=== PATIENT | female | born 1960 | race Caucasian/White ===

== ENCOUNTER → 2018-06-13 | Day surgery (SDC) | payer BC ==
[~2018-06-13] MED LIST: ALLEGRA ALLERG180 MG PO; ASPIR 8181 MG PO; CENTRUM SILVER1 EAC3 PO; CINNAMON500 MG PO; CITRACAL + BON1 EACH PO; ESTRADIOL-NORE1 EACH PO; FENTANYL CITRATE/PF 100MCG/2 ML INJ ONE; HYDROCHLOROTHIA25 MG PO; HYOSCYAMINE SULFATE 0.5 MG/ML INJ ONE; LISINOPRIL-HCT1 EAC1 PO; LISINOPRIL10 MG PO; MIDAZOLAM HCL 2 MG/2 ML VIAL ONE; PROBIOTIC & AC1 EACH PO; PROPOFOL IV EMULSION 10 MG/ML 50 ML VIAL ONE; PROPRANOLOL HCL40 MG PO; RESVERATROL100 MG PO; VITAMIN D1000 UNIT PO; WAL-ITIN10 MG PO; [UNRECOGNIZED DRUG - OTHER]
--- OUTSIDE RECORDS SUMMARY | 2018-06-13 08:28 | XMS REPORT | Clinical Summary ---
Author Author [facility] Organization [facility] Address Unknown Phone Unavailable Care Team Providers Care Internet Sales Associate Name Role Phone Alvarado Shepherd DO PCP Allergies No Known Allergies Current Medications Prescription Sig. Disp. Refills Start End Date Status Date hydroCHLOROthiazide 03/10/20 Active (HYDRODIURIL) 25 MG 18 tablet propranolol LA (INDERAL 03/10/20 Active LA) 60 MG 24 hr capsule 18 lisinopril TK 1 T PO D 1 03/04/20 Active (PRINIVIL,ZESTRIL) 40 mg 18 tablet LOPREEZA 0.5-0.1 mg per TK 1 T PO QD 3 03/04/20 Active tablet 18 Active Problems Not on file Encounters Date Type Specialty Care Team Description 03/12/2018 Office Visit Sports Karthikeyan Conti MD Plantar fasciitis, bilateral (Primary Dx); Pain of left heel; Pain of right heel 03/12/2018 Ancillary Karthikeyan Escalante MD Foot pain, bilateral Orders after 06/12/2017 Family History Medical History Relation Name Comments Hypertension Father Diabetes Mother Hypertension Mother Relation Name Status Comments Father Mother Social History Tobacco Use Types Packs/Day Years Used Date Never Smoker Smokeless Tobacco: Never Used Alcohol Use Drinks/Week oz/Week Comments No Sex Assigned at Date Recorded Not on file Last Filed Vital Signs Vital Sign Reading Time Taken Blood Pressure - - Pulse - - Temperature - - Respiratory Rate - - Oxygen Saturation - - Inhaled Oxygen - - Concentration Weight 90.7 kg (200 lb) 03/12/2018 9:11 AM CDT Height 170.2 cm (5' 7") 03/12/2018 9:11 AM CDT Body Mass Index 31.32 03/12/2018 9:11 AM CDT Plan of Treatment Date Type Specialty Care Team Description 06/16/2018 Office Visit Sports Karthikeyan Conti MD [address] [facility] [address] [place] [address] [phone] Health Maintenance Due Date Last Done Comments CERVICAL CANCER SCREENING 1980 BREAST CANCER SCREENING 2009 COLON CANCER SCREENING 2009 SHINGRIX VACCINE (#1) 2009 INFLUENZA VACCINE 03/18/2018 Procedures Procedure Name Priority Date/Time Associated Diagnosis Comments XR FOOT 3 VW BILATERAL Routine 03/12/2018 Foot pain, bilateral Results for this 9:23 AM CDT procedure are in the results section. MI ARTHROCENTESIS Routine 03/12/2018 Plantar fasciitis, Results for this ASPIR&/INJ INTERM JT/BURS 9:00 AM CDT bilateral procedure are in the W/O Pain of left heel results section. after 06/12/2017 Results * XR Foot 3 Vw Bilateral (03/12/2018 9:23 AM) Narrative Performed At [facility] Right foot 3 views: Mild inferior calcaneal spur noted on lateral view Left foot 3 views: Mild inferior calcaneal spur noted on lateral view Performing Organization Address [facility] Phone Number [facility] [address] [place] [address] * Medium Joint Arthrocentesis (03/12/2018 9:00 AM) Narrative Performed At Karthikeyan Reyna MD 03/12/2018 10:24 AM Medium Joint Arthrocentesis Consent given by: patient Site marked: site marked Timeout: Immediately prior to procedure a time out was called to verify the correct patient, procedure, equipment, software support technician and site/side marked as required Supporting Documentation Indications: pain Procedure Details Preparation: Patient was prepped and draped in the usual sterile fashion Location: heel - left Left side: Needle size: 22 G Approach: posterior Left heel medications administered: 1 mL bupivacaine 0.5 % (5 mg/mL); 80 mg methylPREDNISolone acetate 80 mg/mL Patient tolerance: patient tolerated the procedure well with no immediate complications after 06/12/2017 Insurance Payer Benefit Subscriber ID Type Phone Address Plan / Group BCBS BCBS xxxxxxxxxxxxxx PPO CHOICE PPO/TK [place] [address]
[2018-06-13 12:00] VITALS: BP 128/82
--- NOTE | 2018-06-13 13:02 | Operative Report ---
DATE OF PROCEDURE: June 13, 2018 REFERRING PHYSICIAN: Dr. Alvarado Alexander. PROCEDURES PERFORMED 1. Esophagogastroduodenoscopy with biopsies and esophageal dilatation. 2. Colonoscopy. INDICATIONS FOR EGD: Heartburn, indigestion, dysphagia. INDICATIONS FOR COLONOSCOPY: Colorectal cancer screening. MEDICATION: Patient was done under MAC. Please see anesthesiologist's note. PROCEDURE: With the patient in left lateral decubitus position, flexible fiberoptic Olympus gastroscope was introduced into the esophagus under direct visualization without any difficulty. There were some longitudinal furrows noted in the esophagus, which are compatible with eosinophilic esophagitis and biopsies were obtained. Esophagus was dilated to size 50-[place] Stevens. The scope was then advanced with ease into the stomach. Mucosa overlying the antrum revealed some patchy areas of erythema and low-grade edema, and biopsies were obtained and sent to stain for H. pylori. Multiple gastric polyps, hyperplastic-appearing, some partially excised with cold biopsy forceps. Pylorus appeared to be of normal contour and shape, was intubated with ease, and the scope was advanced all the way to the second portion of the duodenum. The scope was then withdrawn slowly and mucosa overlying the proximal second portion and the duodenal bulb appeared to be within normal limits. The scope was then withdrawn back into the stomach and retroflexed and mucosa overlying the fundus and the cardia appeared to be within normal limits. The scope was then straightened out. The stomach was decompressed. The scope was subsequently withdrawn. Patient tolerated the procedure well. IMPRESSION 1. Rule out eosinophilic esophagitis. 2. Esophagus dilated to size 50-[place] Stevens. 3. Gastritis, biopsied, biopsies sent to stain for Helicobacter pylori. 4. Gastric polyps, hyperplastic-appearing, body, some partially excised with the cold biopsy forceps. PLAN: Follow up histology. Initiate Protonix 40 mg 1 p.o. q.a.m. a.c. Patient was then turned around. After adequate lubrication of the anal canal, a flexible fiberoptic Olympus colonoscope was inserted into the rectum with ease and advanced all the way to the cecum. It was then withdrawn slowly. Mucosa overlying the cecum, ascending colon, transverse, and descending appeared to be within normal limits. Some diverticular disease was noted in the sigmoid colon. The rectum appeared to be within normal limits. The scope was then retroflexed into the distal rectum and small internal hemorrhoids were noted, none of which was actively bleeding. The scope was then straightened out and was subsequently withdrawn. Patient tolerated the procedure well. IMPRESSION 1. Diverticulosis. 2. Internal hemorrhoids, none actively bleeding. PLAN: Initiate high-fiber, low-fat diet. Initiate high-fiber supplement. Patient might benefit from a followup colonoscopy in 5 years. Job#: [id number] AKU cc:ALVARADO ALEXANDER D.O.
== END | disposition home or self-care (01) ==
LOC: OR 08:26
PROVIDERS: ATTEND Internal Medicine Gastroenterology
DX: Z12.11 Encounter for screening for malignant neoplasm of colon (principal); K57.30 Diverticulosis of large intestine without perforation or abscess without bleeding; K64.8 Other hemorrhoids; K31.7 Polyp of stomach and duodenum; I10 Essential (primary) hypertension; K20.0 Eosinophilic esophagitis; Z79.82 Long term (current) use of aspirin; K29.70 Gastritis, unspecified, without bleeding; R13.10 Dysphagia, unspecified; K21.9 Gastro-esophageal reflux disease without esophagitis
CPT/HCPCS: 43239; 43450; G0121; 45378; 93005; J1980; J2250